=== PATIENT | female | born 1975 | race Caucasian/White ===

== ENCOUNTER 2016-06-02 14:30 | Inpatient (IN) | payer OTHER ==
[~2016-06-02] VITALS: Ht 152.4 cm; Wt 60.9 kg
[~2016-06-02 14:30] MED LIST: CLONAZEPAM2 MG; CLONAZEPAM2 MG PO; THERAGRAN1 TABLET PO; VITAMIN B-1100 MG PO; ZOLOFT50 MG; ZOLOFT50 MG PO
[2016-06-02 15:07] LABS: HEMATOCRIT 48.4 % (36.0-46.0); MCH 32.3 PG (29.0-34.0); MCHC 33.3 G/DL (30.0-36.0); MCV 97.2 FL (83-99); MEAN PLAT.VOLUME 9.2 uM^3 (9.5-12.4); PLATELET COUNT 282 K/uL (156-360); RBC DIS.WIDTH-CV 12.7 % (11.8-14.6); RBC DIS.WIDTH-SD 45.1 % (39-53); RED BLOOD COUNT 4.98 M/uL (3.80-5.20); WHITE BLOOD COUNT 12.5 K/uL (4.1-10.2)
[2016-06-02 15:22] LABS: CHLORIDE 106 mEq/L (99-109); POTASSIUM 3.9 mEq/L (3.7-5.4); SODIUM 138 mEq/L (136-147)
[2016-06-02 15:24] LABS: GLUCOSE 91 mg/dL (70-99)
[2016-06-02 15:25] LABS: ANION GAP 12 MEQ/L (2-14)
[2016-06-02 15:27] LABS: SERUM ETHYL ALCOHOL 67 mg/dL
[2016-06-02 15:28] LABS: GFR ESTIMATE (CALCULATED) > 59 mL/min/; UREA NITROGEN (BUN) 12 mg/dL (9-23)
[2016-06-02 16:22] LABS: THC CANNABINOIDS PRESUMPTIVE POSITIVE (50 ng/mL)
[2016-06-02 16:23] LABS: ADD MEDTOX COMMENT Y; AMPHETAMINE NEGATIVE (500 ng/mL); BARBITURATES NEGATIVE (200 ng/mL); BENZODIAZEPINES NEGATIVE (150 ng/mL); COCAINE NEGATIVE (150 ng/mL); INTERNAL CONTROLS VALID? YES; METHADONE NEGATIVE (200 ng/mL); METHAMPHETAMINE NEGATIVE (500 ng/mL); OPIATES (MORPHINE) NEGATIVE (100 ng/mL); OXYCODONE NEGATIVE (100 ng/mL); PHENCYCLIDINE NEGATIVE (25 ng/mL); PROPOXYPHENE NEGATIVE (300 ng/mL); TRICYCLIC ANTIDEPRESSANTS NEGATIVE (300 ng/mL)
[2016-06-02] MEDS ORDERED: LEXAPRO5 MG PO (18:42)
[2016-06-02] MEDS ORDERED: CLONAZEPAM0.5 MG PO (18:42)
[2016-06-02] MEDS ORDERED: NICODERM CQ1 EAC2 TD (18:42)
[2016-06-02 20:34] VITALS: BP 177/101
[2016-06-02] MEDS ORDERED: BACITRACIN28.4 GM TP (20:39)
[2016-06-03 07:50] VITALS: BP 161/90
[2016-06-03 11:49] VITALS: BP 159/114
[2016-06-03 13:15] VITALS: BP 135/93
[2016-06-03 15:42] VITALS: BP 167/79
[2016-06-03 18:47] VITALS: BP 165/93
[2016-06-04 07:58] VITALS: BP 185/110
[2016-06-04 08:11] VITALS: BP 149/90
[2016-06-04 10:00] VITALS: BP 140/87
[2016-06-04 16:27] VITALS: BP 188/109
[2016-06-04 19:45] VITALS: BP 141/77
[2016-06-04 20:53] VITALS: BP 152/90
[2016-06-05 09:27] VITALS: BP 150/99
[2016-06-05 13:48] VITALS: BP 188/86
[2016-06-05 16:13] VITALS: BP 130/63
[2016-06-05 20:57] LABS: C DIFF TOXIN NEGATIVE (NEGATIVE)
[2016-06-05 21:05] LABS: PROBE CHECK PASS; SPECIMEN PROCESSING CONTROL PASS
[2016-06-06 07:58] VITALS: BP 128/81
[2016-06-06 16:03] VITALS: BP 148/87
[2016-06-07 08:11] VITALS: BP 140/84
[2016-06-07] MEDS ORDERED: BUSPAR10 MG PO (10:29)
[2016-06-07] MEDS ORDERED: LEXAPRO5 MG PO (10:29)
== END 2016-06-07 11:50 | disposition other institution (70) | DRG 897 ==
LOC: EME 14:30 → 1WEST 18:21 → EDOF 18:21 → 1WEST 20:27
PROVIDERS: Psychiatry & Neurology Psychiatry
DX: F10.24 Alcohol dependence with alcohol-induced mood disorder (principal); F33.2 Major depressive disorder, recurrent severe without psychotic features; S81.812D Laceration without foreign body, left lower leg, subsequent encounter; S81.811D Laceration without foreign body, right lower leg, subsequent encounter; X78.9XXD Intentional self-harm by unspecified sharp object, subsequent encounter; F41.9 Anxiety disorder, unspecified; Y90.3 Blood alcohol level of 60-79 mg/100 ml; F17.210 Nicotine dependence, cigarettes, uncomplicated
CPT/HCPCS: 71020; 80048; 84999; 85027; 87493; 90839; 97150 GO; 97165 GO; 99281; 99285; G0480; Q0177